=== PATIENT | male | born 1985 | race Caucasian/White ===

== ENCOUNTER → 2021-10-25 08:06 | Outpatient (CLI) | payer BC, SELFPAY ==
[2021-10-25 19:47] LABS: SARS-CoV-2 RNA PCR Positive
== END ==
PROVIDERS: PCP Family Medicine; Visit Provider Family Medicine
DX: U07.1 COVID-19 (principal)
CPT/HCPCS: C9803; U0003; U0005

== ENCOUNTER → 2023-06-04 14:12 | Outpatient (CLI) | payer OTHER, SELFPAY ==
--- NOTE | ~2023-06-04 | XR_ITS ---
EXAMINATION: [id number] Exam Date/Time: 06/04/2023 14:32 CDT HISTORY: LT LOWER ANTERIOR RIB PAIN AFTER WATER TUBING Comparison: None. RESULT: Lines, tubes, and devices: None. Lungs and pleura: Clear. Cardiomediastinal silhouette: Stable. Other: No acute osseous or upper abdominal finding. IMPRESSION: No acute cardiopulmonary process. No acute finding in the left ribs. Reviewed, dictated and finalized at location K.
== END ==
PROVIDERS: PCP Family Medicine; Visit Provider Nurse Practitioner Family
DX: R07.81 Pleurodynia (principal)
CPT/HCPCS: 71101

== ENCOUNTER 2023-07-28 10:03 | Outpatient (CLI) | payer OTHER, SELFPAY ==
--- NOTE | 2023-08-05 18:37 | WPDHOMESLEEP ---
Sleep Study - Home Unattended Date of Study: 07/28/23 Ordering Provider: Yariel Mckenna MD Interpreting Provider: Precious Zapien, DO Home Sleep Study Type: Watch SIRISHA Height: 1.88 m Weight: 107.501 kg Body Mass Index: 30.4 Neck Circumference (inches): 17.5 Thor: 15 Reason for Sleep Study Daytime hypersomnia Sleep History The patient is a 38-year-old male that had a sleep study ordered by his primary care for evaluation of sleep apnea. The patient frequently awakens from sleep short of breath. He constantly awakens at night with heartburn, belching or cough. He constantly snores loudly enough that others complain. He constantly has trouble sleeping when he has a cold. He occasionally wakes up gasping for air throughout the night. He frequently has breathing problems at night observed by himself or others. He frequently sweats excessively at night. He rarely has heart palpitations or irregular heartbeats during the night. He rarely falls asleep during the day. He rarely falls asleep while driving. He frequently experiences loss of muscle tone when extremely emotional. He frequently has trouble at school or work due to sleepiness. He frequently feels unable to move while waking up or falling asleep. He frequently experiences vivid dreamlike scenes upon awakening or falling asleep. He denies feeling afraid of going to sleep. He rarely has nightmares and occasionally remembers his dreams. He constantly has thoughts racing through his mind. He rarely feels sad or depressed. He constantly has anxiety. He constantly has muscular tension. He frequently notices parts of his body jerk. He constantly kicks during the night. He rarely has crawling and aching feelings in his legs and rarely has leg pain during the night. He constantly grinds his teeth during sleep and constantly awakens with morning jaw pain. He is rarely bothered by pain during the day and rarely awakened by pain during the night. He frequently wakes up feeling stiff in the morning. He frequently wakes up with sore or achy muscles. He frequently wakes up with pain in the neck, spine or other joints. He goes to bed at 9:00 p.m. on weekdays and at 10:00 p.m. on the weekends. It takes him 1-2 hours to fall asleep. He wakes up 1-2 times throughout the night for unknown reasons and is occasionally unable to get back to sleep. He wakes up between 7-8 a.m. on weekdays and 8:00 a.m. on the weekends. He typically gets 8 hours of sleep per night. He will stay in bed for 5-10 minutes after waking up in the morning. He currently lives with his and 2 children. He will consume caffeinated beverages within 2 hours of bedtime. He denies engaging in physical exercise before bedtime. He will watch television before falling asleep. He denies taking naps in the afternoon or evening. He consumes 3-4 caffeinated beverages per day. He consumes 2-3 alcoholic beverages per day. He uses CBD gummies. he denies tobacco use. [facility] Past Medical History Medical History Amniotic band syndrome affecting lower extremity Metal bone fixation hardware in place Thumb fracture Torn meniscus Family History Family History Mother Hypertension Family history of malignant neoplasm of cervix Grandparent Family history of cardiovascular disease Family history of malignant neoplasm of breast Social History Social History Smoking status: Never smoker Second hand tobacco smoke exposure: No Alcohol intake: current Drinks per week: 6 Substance use: never Substance use type: does not use Lack of Transportation: No Lack of Food: Never True Current Housing: I Have Housing Concerned About Future Housing: No Difficulty Paying Gas/Electric Bills: No Difficulty Paying for Meds: No Currentl
[2023-08-05 18:38] VITALS: BMI 30.4
--- NOTE | 2023-08-21 13:51 | SLEEP ---
new calls [phone]
== END 2023-07-29 12:49 | disposition home or self-care (01) ==
LOC: ANHCSM 10:04
PROVIDERS: PCP Family Medicine; Visit Provider Family Medicine
DX: G47.30 Sleep apnea, unspecified (principal); G47.33 Obstructive sleep apnea (adult) (pediatric)
CPT/HCPCS: 95800

== ENCOUNTER 2023-08-11 08:33 | Outpatient (CLI) | payer OTHER, SELFPAY ==
--- NOTE | 2023-08-26 19:59 | WPDSLEEPSTUD ---
Sleep Study Date of Study: 08/11/23 Ordering Provider: Yariel Mckenna MD Interpreting Physician: Precious Zapien DO Sleep Study Type: CPAP Titration Height: 1.88 m Weight: 108.862 kg Body Mass Index: 30.8 Neck Circumference (inches): 18 Ursa: 15 Reason for Sleep Study The patient had a WatchPAT home sleep study on 07/28/2023 that showed an overall AHI of 18.5, central apnea index of 6.5 and desaturation down to 88%. Sleep History The patient is a 38-year-old male that had a sleep study ordered by his primary care for evaluation of sleep apnea.? The patient frequently awakens from sleep short of breath.? He constantly awakens at night with heartburn, belching or cough.? He constantly snores loudly enough that others complain.? He constantly has trouble sleeping when he has a cold.? He occasionally wakes up gasping for air throughout the night.? He frequently has breathing problems at night observed by himself or others.? He frequently sweats excessively at night.? He rarely has heart palpitations or irregular heartbeats during the night.? He rarely falls asleep during the day.? He rarely falls asleep while driving.? He frequently experiences loss of muscle tone when extremely emotional.? He frequently has trouble at school or work due to sleepiness.? He frequently feels unable to move while waking up or falling asleep.? He frequently experiences vivid dreamlike scenes upon awakening or falling asleep.? He denies feeling afraid of going to sleep.? He rarely has nightmares and occasionally remembers his dreams.? He constantly has thoughts racing through his mind.? He rarely feels sad or depressed.??He constantly has anxiety.? He constantly has muscular tension.? He frequently notices parts of his body jerk.? He constantly kicks during the night.? He rarely has crawling and aching feelings in his legs and rarely has leg pain during the night.? He constantly grinds his teeth during sleep and constantly awakens with morning jaw pain.? He is rarely bothered by pain during the day and rarely awakened by pain during the night.? He frequently wakes up feeling stiff in the morning.? He frequently wakes up with sore or achy muscles.? He frequently wakes up with pain in the neck, spine or other joints.? He goes to bed at 9:00 p.m. on weekdays and at 10:00 p.m. on the weekends.? It takes him 1-2 hours to fall asleep.? He wakes up 1-2 times throughout the night for unknown reasons and is occasionally unable to get back to sleep.? He wakes up between 7-8 a.m. on weekdays and 8:00 a.m. on the weekends.? He typically gets 8 hours of sleep per night.? He will stay in bed for 5-10 minutes after waking up in the morning.? He currently lives with his and 2 children.? He will consume caffeinated beverages within 2 hours of bedtime.? He denies engaging in physical exercise before bedtime.? He will watch television before falling asleep.? He denies taking naps in the afternoon or evening.? He consumes 3-4 caffeinated beverages per day.? He consumes 2-3 alcoholic beverages per day.? He uses CBD gummies. He denies tobacco use. [facility] Past Medical History Medical History Amniotic band syndrome affecting lower extremity Metal bone fixation hardware in place Thumb fracture Torn meniscus Family History Family History Mother Hypertension Family history of malignant neoplasm of cervix Grandparent Family history of cardiovascular disease Family history of malignant neoplasm of breast Social History Social History Smoking status: Never smoker Second hand tobacco smoke exposure: No Alcohol intake: current Drinks per week: 6 Substance use: never Substance use type: does not use Lack of Transportation: No Lack of Food: Never True Current Housing: I Have Housing Concerned About
[2023-08-26 20:06] VITALS: BMI 30.8
== END 2023-08-12 07:51 | disposition home or self-care (01) ==
LOC: ANHCSM 08:34
PROVIDERS: PCP Family Medicine; Visit Provider Family Medicine
DX: G47.33 Obstructive sleep apnea (adult) (pediatric) (principal); G47.30 Sleep apnea, unspecified; G47.39 Other sleep apnea
CPT/HCPCS: 95811

== ENCOUNTER 2023-09-04 15:58 | Outpatient (CLI) | payer OTHER, SELFPAY ==
--- NOTE | 2023-09-04 16:13 | ECHO_ITS ---
Patient Info Name: Alistair Snyder Age: 38 years : 1985 Gender: Male Ht: 74 in Wt: 240 lbs BSA: 2.41 m2 HR: 75 bpm BP: 160 / 102 mmHg Heart Rhythm: Sinus Rhythm Technical Quality: Good Exam Date: 09/04/2023 4:26 PM Exam Location: Echo Lab Patient Status: Outpatient Admit Date: 09/04/2023 Staff Ordering Physician: Yariel Mckenna MD Edge Drummer: Syed Vu RDCS Attending Provider: Yariel Mckenna MD Referring Physician: Bala WHITAKER; Exam Type: CA echo doppler color flow Study Info Indications - RUPERTO Complete two-dimensional, color flow and Doppler transthoracic echocardiogram is performed. Summary 1. Complete two-dimensional, color flow and Doppler transthoracic echocardiogram is performed. 2. Left ventricular chamber dimension is normal. 3. Left ventricular systolic function is normal, estimated at 60-65%. 4. The left ventricular diastolic function is normal. 5. E/e' 5 is not elevated. 6. There is trace tricuspid valve regurgitation. 7. No pulmonary hypertension, estimated pulmonary arterial systolic pressure is 14 mmHg. Left Ventricle E/e' 5 is not elevated. Left ventricular chamber dimension is normal. Left ventricular systolic function is normal, estimated at 60-65%. The left ventricular diastolic function is normal. Right Ventricle Right ventricular systolic function is normal and with normal TAPSE 2.8 cm. Right ventricular chamber dimension is normal. Left Atria Left atrial chamber dimension is normal. Right Atria Right atrial chamber dimension is normal. Aortic Valve The aortic valve is trileaflet. There is no aortic valve stenosis. There is no aortic valve regurgitation. Pulmonic Valve There is no pulmonic regurgitation. Mitral Valve There is no mitral valve stenosis. There is no mitral valve regurgitation. Tricuspid Valve There is trace tricuspid valve regurgitation. No pulmonary hypertension, estimated pulmonary arterial systolic pressure is 14 mmHg. Pericardium/Pleural There is no pericardial effusion. Inferior Vena Cava Normal inferior vena cava with >50% collapse upon inspiration consistent with normal right atrial pressure, 5 mmHg. Aorta The aortic root size at the sinus of Valsalva is normal. Left Ventricular Outflow Tract Name Value Normal LVOT 2D LVOT Diameter 2.3 cm LVOT Doppler LVOT Peak Gradient 4 mmHg LVOT Mean Gradient 2 mmHg LVOT VTI 21 cm LVOT VTI/AV VTI Ratio 1.1 LVOT Stroke Volume 84 ml LVOT CO 5.4 l/min LVOT CI 2.3 l/min/m2 Pulmonic Valve Name Value Normal RVOT Doppler RVOT Peak Gradient 2 mmHg PV Doppler PV Peak Gradient 4 mmHg
== END 2023-09-04 15:59 | disposition home or self-care (01) ==
PROVIDERS: PCP Family Medicine; Visit Provider Family Medicine
DX: G47.33 Obstructive sleep apnea (adult) (pediatric) (principal); G47.30 Sleep apnea, unspecified
CPT/HCPCS: 93306

== ENCOUNTER 2024-04-03 09:48 | Emergency (ER) | payer OTHER, SELFPAY ==
--- NOTE | 2024-04-03 09:55 | ED.GENADULT ---
HPI - General Adult General Chief complaint: Ear Stated complaint: EARACHE Time Seen by Provider: 04/03/24 09:56 Source: patient Mode of arrival: ambulatory Limitations: no limitations History of Present Illness HPI narrative: 39-year-old male patient presents to the [facility] with complaints of left ear pain that started about 2 days ago. Patient states he thinks he might have swimmer's ear. Patient states he does have a pool and did do some recent swimming. Denies fevers, body aches or chills. Denies any headaches, throat pain or any other symptoms at this time. Related Data Allergies Allergy/AdvReac Type Severity Reaction Status Date / Time latex Allergy Mild Rash Verified 04/03/24 09:57 Review of Systems Review of Systems: CONSTITUTIONAL: Denies fever, chills, or sweats. EYES: Denies visual changes, redness, or discharge. ENT: Denies rhinorrhea, congestion, sore throat, Positive left otalgia. CARDIOVASCULAR: Denies chest pain, palpitations, or edema. RESPIRATORY: Denies cough or dyspnea. GASTROINTESTINAL: Denies abdominal pain, nausea, vomiting, or diarrhea. GENITOURINARY: Denies dysuria or hematuria. SKIN: Denies rash or itching. MUSCULOSKELETAL: Denies back pain, joint pain, or myalgia. NEUROLOGIC: Denies headache, numbness, or weakness. PSYCHIATRIC: Denies anxiety or depression. [facility] Past Medical History Medical History Amniotic band syndrome affecting lower extremity Metal bone fixation hardware in place Thumb fracture Torn meniscus Family History Family History Mother Hypertension Family history of malignant neoplasm of cervix Grandparent Family history of cardiovascular disease Family history of malignant neoplasm of breast Social History Social History Smoking status: Never smoker Second hand tobacco smoke exposure: No Alcohol intake: current Drinks per week: 6 Substance use: never Substance use type: does not use Lack of Transportation: No Lack of Food: Never True Current Housing: I Have Housing Concerned About Future Housing: No Difficulty Paying Gas/Electric Bills: No Difficulty Paying for Meds: No Currently Unemployed: No Education: Master's Degree or Higher Difficulty w/ Childcare or Family Care: No Living arrangements: with family Occupation/Education: occupation Gender identity (if verbalized by the patient): Male Comments At the time of my signature I agree with nursing past medical history, surgical, social, and family history. There is no relevant family history pertinent to the presenting complaint. Exam Narrative: GENERAL: Well-appearing, well-nourished, and in no acute distress. HEAD: Normocephalic, atraumatic. EYES: PERRLA and EOMI. ENT: Nares clear, no rhinorrhea or epistaxis. Mucous membranes moist. left ear canal appears to have erythema and slight discharge. There is pain with manipulation of the left auricle. TM is intact. NECK: Supple. No lymphadenopathy CHEST: Clear to auscultation. No respiratory distress. HEART: Regular rate and rhythm. No murmur heard. Normal peripheral pulses. ABDOMEN: Soft, nontender, nondistended, normal active bowel sounds. EXTREMITIES: Normal range of motion. No edema. SKIN: Warm, dry, no rash. NEURO: No focal deficits. Alert and oriented x3. Course Course Level of Care: Express Care Visit Vital Signs Vital signs: Vital Signs Temperature 37.1 C 04/03/24 10:03 Pulse Rate 82 04/03/24 10:03 Respiratory Rate 16 04/03/24 10:03 Blood Pressure 154/95 H 04/03/24 10:03 Pulse Oximetry 100 04/03/24 10:03 Temperature 37.1 C 04/03/24 10:03 Pulse Rate 82 04/03/24 10:03 Respiratory Rate 16 04/03/24 10:03 Blood Pressure 154/95 H 04/03/24 10:03 Pulse Oximetry 100 04/03/24 10:03 Vital signs rev
[2024-04-03 10:03] VITALS: BP 154/95; PULSE 82; RESP 16; TEMP 37.1; O2SAT 100
== END 2024-04-03 10:49 | disposition home or self-care (01) ==
PROVIDERS: Emergency Provider Nurse Practitioner Family; PCP Family Medicine
DX: H60.92 Unspecified otitis externa, left ear (principal)
CPT/HCPCS: 99213; G0463

== ENCOUNTER 2025-07-15 08:58 | Outpatient (CLI) | payer OTHER, SELFPAY ==
--- OUTSIDE RECORDS SUMMARY | 2025-07-15 09:15 | XMS_ITS | Clinical Summary ---
Author Organization [facility] Address [address] [place] [address] Care Team Providers Care Office Machine Servicer Name Role Phone Unavailable Primary Care Provider Unavailabl e Source Comments [facility],non-owned Affiliates and Associated Physician Practices is amultiple site organization consisting of ambulatory clinics and hospital sitesin [place], [place], [place] and [place]. This disclosure is being madepursuant to the Care Everywhere program and may not contain all information available regarding this patient. 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 Gender Identity Not on file Sexual Orientation Not on file Plan of Treatment Health Maintenance Due Date Last Done Comments LIPID TESTING 1985 HIV SCREENING 02/23/2000 HEPATITIS C SCREENING 02/18/2003 DTAP/TDAP/TD VACCINES (1 - Tdap) 02/23/2004 HEPATITIS B VACCINE (1 of 3 - 19+ 3-dose series) 02/23/2004 HPV VACCINE (1 - 3-dose SCDM series) 02/23/2012 DEPRESSION SCREENING 11/03/2024 COVID-19 VACCINE (1 - 2023-2 5 season) 2025 INFLUENZA VACCINE (#1) 2025 ZOSTER VACCINE (1 of 2) 2035 HIB VACCINE Aged Out No longer eligi ble based on patient's age to complete this topic MENINGOCOCCAL (Group B) VACC INE SHARED DECISION-MAKING Aged Out No longer eligibl e based on patient's age to complete this topic MENINGOCOCCAL GROUPS A/C/Y/W VACCINE Aged Out No longer eligible b ased on patient's age to complete this topic PNEUMOCOCCAL VACCINE Aged Out No long er eligible based on patient's age to complete this topic Insurance [facility] Member Subscriber Plan / Payer ( fective 2022-Present) Name:Alistair Mccarthy Relation to Subscriber:Self Name:ALISTAIR MCCARTHY Payer ID:[id number] (NAIC) Type:[employer] Address: [place] [id number] [facility] Member Subscriber Plan / Payer ( fective 2022-Present) Name:Alistair Mccarthy Relation to Subscriber:Self Name:ALISTAIR MCCARTHY Payer ID:[id number] (NAIC) Type:[employer] Address: [place] [phone]
--- OUTSIDE RECORDS SUMMARY | 2025-07-15 09:15 | XMS_ITS | Encounter Summary ---
Author Organization [facility] Address [address] [place] [address] Care Team Providers Care Television Program Director Name Role Phone Unavailable Primary Care Provider Unavailabl e Encounter Details Date Type Department Care Team (Late st Contact Info) Description 09/20/2023 Lab Requisition [facility] - DermPath Lab [address] [place] [id number] Chas Sumner MD [address] [place] [id number] Social History Tobacco Use Types Packs/Day Years Used Date Smoking Tobacco: Never Assessed Sex and Gender Information Value Date Recorded Sex Assigned at Not on file 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 Gender Identity Not on file Sexual Orientation Not on file documented as of this encounter Plan of Treatment Not on file documented as of this encounter Procedures Procedure Name Priority Date/Time Associated Diagnosis Comments DERMATOPATHOLOGY Routine 09/17/2023 12:0 0 AM SHRIMP CLEANER documented in this encounter Results * DERMATOPATHOLOGY (09/17/2023 12:00 AM SHRIMP CLEANER) Case Report Dermatopathology Report Case: [id number] Authorizing Provider: Chas Sumner MD Collected: 09/17/2023 12:00 AM Ordering Location: [facility] DermPath Lab Received: 09/20/2023 08:08 AM Pathologist: Melida Iraheta MD Specimens: A) - Skin, right of midline mid back B) - Skin, left dorsal radial hand 12:26 PM SHRIMP CLEANER DERMATOPATHOLOGY LABORATORY Final Diagnosis Specimen A. 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 SKIN, left dorsal radial hand: EPIDERMOID CYST WITH SCAR (L72.0) 3 12:26 PM [facility] DERMATOPATHOLOGY LABORATORY at [address] SHRIMP CLEANER Clinical History A: R/O Dys Nevus B: R/O BCC 12:26 PM [facility] DERMATOPATHOLOGY LABORATORY Gross Description Specimen A: Received is one formalin filled container labeled with the patient's name and designated right of midline mid back. The specimen consists of a shave biopsy measuring 6x5x2 mm. Jar 0. Specimen B: Received is one formalin filled container labeled with the patient's name and designated left dorsal radial hand. The specimen consists of a shave biopsy measuring 8x7x2 mm. Jar 0. 12:26 PM [facility] DERMATOPATHOLOGY LABORATORY Microscopic Description Specimen A. SKIN, right of midline mid back: There are nests of cytologically bland melanocytes within the dermis that mature with depth. Specimen B. SKIN, left dorsal radial hand: Within the dermis, there is a space lined by epithelium that resembles normal epidermis and the infundibular portion of the hair follicle. There are fibroblasts and collagen bundles oriented parallel to one another. 12:26 PM [facility] DERMATOPATHOLOGY LABORATORY Disclaimer An external and internal positive and negative controls are appropriate for the histochemical, immunohistochemical and immunofluorescence stain(s) in this case (if any), except where stated explicitly. The performance characteristics of the stain(s) cited in this report were developed and its performance characteristic determined by the Dermatopathology Laboratory at [facility], directed by Dr. Salinas Corrigan. These tests need not be, and therefore are not, approved by the [place] Food and Drug Administration. The tests are used for clinical purposes. Billing Codes Specimen Charges Stain Charges 35659 [id number] 1 3 12:26 PM SHRIMP CLEANER DERMATOPATHOLOGY LABORATORY Embedded Images 3 12:26 PM [facility] DERMATOPATHOLOGY LABORATORY Pathology/Cytology TISSUE SPECIMEN FROM SKIN / Unknown 09/17/2023 09/20/2023 8:08 AM SHRIMP CLEANER Miscellaneous samples (specimen) TISSUE SPECIMEN FROM SKIN / Unknown 09/17/2023 09/20/2023 8:08 AM SHRIMP CLEANER Chas Sumner MD LAB - PATHOLOGY/CYTOLOGY ORD ERABLES Final Result DERMATOPATHOLOGY LABORATORY [facility] - Department of Dermatology [facility] [address] [place] [address], [address] [phone] documented in this encounter Visit Diagnoses Not on filedocumented in this encounter
--- OUTSIDE RECORDS SUMMARY | 2025-07-15 09:15 | XMS_ITS | Encounter Summary ---
Author Organization [facility] Address [address] [facility] [place] [address] Care Team Providers Care Miter Operator Name Role Phone Unavailable Primary Care Provider Unavailabl e Encounter Details Date Type Department Care Team (Late st Contact Info) Description 09/04/2022 Lab Requisition [facility] [address] [place] [id number] Chas Sumner MD [address] [place] [id number] Social History Tobacco Use Types Packs/Day Years Used Date Smoking Tobacco: Never Assessed Sex and Gender Information Value Date Recorded Sex Assigned at Not on file 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 Gender Identity Not on file Sexual Orientation Not on file documented as of this encounter Plan of Treatment Not on file documented as of this encounter Procedures Procedure Name Priority Date/Time Associated Diagnosis Comments DERMATOPATHOLOGY Routine 09/03/2022 12:0 0 AM CDT documented in this encounter Results * DERMATOPATHOLOGY (09/03/2022 12:00 AM CDT) Case Report Dermatopathology Report Case: [id number] Authorizing Provider: Chas Sumner MD Collected: 09/03/2022 12:00 AM Ordering Location: [facility] Received: 09/04/2022 01:15 PM Pathologist: Melida Iraheta MD Specimens: A) - Skin, right lower back B) - Skin, left lower back C) - Skin, right lower lateral back at flank D) - Skin, right cheek lateral to ala E) - Skin, behind left earlobe in sulcus 2 3:40 PM [facility] Final Diagnosis Specimen A. 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 SKIN, left lower back: MALIGNANT MELANOMA, SUPERFICIAL SPREADING TYPE BRESLOW THICKNESS 0.4MM JOHN LEVEL II PRESENT AT MARGIN (C43.59) (see microscopic description and synoptic report) Specimen C. SKIN, right lower lateral back at flank: COMPOUND NEVUS WITH CONGENITAL FEATURES (D22.5) Specimen D. SKIN, right cheek lateral to ala: ANGIOFIBROMA (FIBROUS PAPULE) (D21.0) SEBACEOUS HYPERPLASIA (L73.8) CHRONIC PERIFOLLICULITIS (L73.8) (see microscopic description) Specimen E. SKIN, behind left earlobe in sulcus: COMPOUND MELANOCYTIC NEVUS (D22.22) 2 3:40 PM [facility] at 1540 PROCESS MECHANIC Clinical History A-E: R/O BCC 2 3:40 PM [facility] Gross Description Specimen A: Received is one formalin filled container labeled with the patient's name and designated right lower back. The specimen consists of a shave biopsy measuring [id number]. Jar 0. Specimen B: Received is one formalin filled container labeled with the patient's name and designated left lower back. The specimen consists of a shave biopsy measuring [id number]. Jar 0. Specimen C: Received is one formalin filled container labeled with the patient's name and designated right lower lateral back at flank. The specimen consists of a shave biopsy measuring [id number]. Jar 0. Specimen D: Received is one formalin filled container labeled with the patient's name and designated right cheek lateral to ala. The specimen consists of a punch biopsy measuring 4i0c4pt. Jar 0. Specimen E: Received is one formalin filled container labeled with the patient's name and designated behind left earlobe in sulcus. The specimen consists of a shave biopsy measuring 5a7z0bl. Jar 0. 2 3:40 PM [facility] Microscopic Description Specimen A. SKIN, right lower back: This is a compound nevus. There is a lentiginous proliferation of melanocytes along the dermal-epidermal junction, highlighted by MART-1/Melan-A immunohistochemical staining. There is underlying fibroplasia of the papillary dermis. The intradermal component is bland in appearance and matures with depth. Original and deeper sections were reviewed. (Compound John's Nevus) Specimen B. SKIN, left lower back: There is a proliferation melanocytes distributed in an irregular pattern singly and in nests at all levels of the epidermis. In the dermis there are irregular nests and single scattered melanocytes. Lesional cells are highlighted by MART-1/MelanA immunostain. Additional deeper sections were obtained and reviewed. This lesion is present at the margin of the specimen. Specimen C. SKIN, right lower lateral back at flank: There are nests of melanocytes at the dermal-epidermal junction and within the dermis. Some melanocytes are splayed between collagen bundles and are localized around adnexal structures. Specimen D. SKIN, right cheek lateral to ala: This dome-shaped lesion contains dilated blood vessels, coarse collagen bundles, and stellate fibroblasts. There are prominent sebaceous gland lobules surrounding a dilated hair follicle. Sections show a perifollicular lymphohistiocytic infiltrate. SOX-10 staining highlights regular periodicity of melanocytes along the dermoepidermal junction.Additional deeper sections were obtained and reviewed. Specimen E. SKIN, behind left earlobe in sulcus: There are nests of melanocytes at the dermal-epidermal junction and within the dermis. 2 3:40 PM [facility] Disclaimer An external and internal positive and negative controls are appropriate for the histochemical, immunohistochemical and immunofluorescence stain(s) in this case (if any), except where stated explicitly. The performance characteristics of the stain(s) cited in this report were developed and its performance characteristic determined by the Dermatopathology Laboratory at [facility], directed by Dr. Salinas Corrigan. These tests need not be, and therefore are not, approved by the [place] Food and Drug Administration. The tests are used for clinical purposes. Billing Codes Specimen Charges Stain Charges 81843 [id number] 37689 1 1 1 1 1 [id number] [id number] 1 1 1 2 3:40 PM [facility] Embedded Images 2 3:40 PM [facility] Synoptic Report MELANOMA OF THE SKIN: Biopsy MELANOMA OF THE SKIN: BIOPSY - B 8th Edition - Protocol posted: 01/23/2022 SPECIMEN Procedure: Biopsy, shave Specimen Laterality: Left TUMOR Tumor Site: Skin of trunk: left lower back Histologic Type: Superficial spreading melanoma (low-cumulative sun damage (CSD) melanoma) Maximum Tumor (Breslow) Thickness (Millimeters): At least: 0.4 mm : tumor is present at the surgical margin; therefore the final depth may exceed the current one. Ulceration: Not identified Anatomic (John) Level: At least level: II : tumor is present at the surgical margin; therefore the final depth may exceed the current one. Mitotic Rate: None identified Microsatellite(s): Cannot be determined Lymphovascular Invasion: Not identified Neurotropism: Not identified Tumor-Infiltrating Lymphocytes: Present, nonbrisk Tumor Regression: Present MARGINS: Margin Status for Invasive Melanoma: All margins negative for invasive melanoma Margin Status for Melanoma in situ: Melanoma in situ present at margin Margin(s) Involved by Melanoma in Situ: Peripheral PATHOLOGIC STAGE CLASSIFICATION (pTNM, AJCC 8th Edition): pT Category: pT1a Comment(s): This specimen was also reviewed by Dr. Dian Lomeli, who agrees. 3:40 PM [facility]ERMATOPATH[facility]Y [facility]ORY Pathology/Cytology TISSUE SPECIMEN FROM SKIN / Unknown 09/03/2022 09/04/2022 1:15 PM CDT Miscellaneous samples (specimen) TISSUE SPECIMEN FROM SKIN / Unknown 09/03/2022 09/04/2022 1:15 PM CDT Miscellaneous samples (specimen) TISSUE SPECIMEN FROM SKIN / Unknown 09/03/2022 09/04/2022 1:15 PM CDT Miscellaneous samples (specimen) TISSUE SPECIMEN FROM SKIN / Unknown 09/03/2022 09/04/2022 1:15 PM CDT Miscellaneous samples (specimen) TISSUE SPECIMEN FROM SKIN / Unknown 09/03/2022 09/04/2022 1:15 PM CDT us Chas Sumner MD LAB - PATHOLOGY/CYTOLOGY ORD ERABLES Final Result DERMATOPATHOLOGY LABORATORY [facility] - Department of Dermatology [address] [place] [address], [facility] [phone] documented in this encounter Visit Diagnoses Not on filedocumented in this encounter
--- OUTSIDE RECORDS SUMMARY | 2025-07-15 09:15 | XMS_ITS | Clinical Summary ---
Author Organization [facility] Address [address] [place] [id number] Care Team Providers Care Edge Dyer Name Role Phone Yariel Mckenna MD Primary Care Provider [phone] Allergies Active Allergy Reactions Criticality Noted Date Comments Latex Rash Medium Medications busPIRone (BUSPAR) 10 mg tablet Take 1 tablet (10 mg total) by mouth 2 (two) times a day 07/21/2023 Active zolpidem (AMBIEN) 10 mg tablet 08/06/2023 Active propranoloL (INDERAL) 20 mg tablet 09/29/2023 Active meloxicam (MOBIC) 15 mg tablet Take 1 tablet (15 mg total) by mouth daily 30 tablet 10/06/2023 Active Active Problems Problem Noted Date Diagnosed Date Contusion of left knee 10/06/2023 Chondromalacia of left patella 10/06/2023 Sprain of medial collateral ligament of left kne e 04/09/2019 Acute pain of left knee 04/08/2019 Injury of left knee 04/08/2019 Insect bite 09/17/2016 Disorder of rotator cuff 05/27/2016 Subdeltoid bursitis 05/27/2016 Fracture of tibial plateau 01/24/2016 Tear of medial meniscus of knee 02/21/2014 Effusion of knee 02/18/2014 Surgical History Surgery Date Site/Laterality Comments KNEE ARTHROSCOPY HAND SURGERY FOOT SURGERY FRACTURE SURGERY HERNIA REPAIR LASIK Medical History Medical History Date Comments Anxiety Migraines GERD (gastroesophageal reflux disease) Cancer (HCC) Brain concussion Sleep apnea Family History Medical History Relation Name Comments Arthritis Mother Rosalinda Cancer Mother Rosalinda Family history of malignant neoplasm - (Added by TW Conv) Hypertension Mother Rosalinda Family history of hypertension - (Added by TW Conv) Relation Name Status Comments Mother Rosalinda Social History Tobacco Use Types Packs/Day Years Used Date Smoking Tobacco: Never Smokeless Tobacco: Never Tobacco Cessation:Counseling Given: Not Answered Alcohol Use Standard Drinks/Week Comments Yes 0 (1 standard drink = 0.6 oz pur e alcohol) Personal Safety Answer Date Recorded Getting School Help Needed Not on file 12/11 Sex and Gender Information Value Date Recorded Sex Assigned at Not on file 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 Gender Identity Not on file Sexual Orientation Not on file Obstetrics History Last Filed Vital Signs Vital Sign Reading Time Taken Comments Blood Pressure 141/84 09/19/2022 12:20 PM APPLE PEELER OPERATOR Pulse 72 09/19/2022 12:20 PM APPLE PEELER OPERATOR Temperature - - Respiratory Rate - - Oxygen Saturation 99% 09/19/2022 12:20 PM APPLE PEELER OPERATOR Inhaled Oxygen Concentration - - Weight 102.1 kg (225 lb) 04/08/2019 12:29 PM CDT Height 188 cm (6' 2) 04/08/2019 12:29 PM CDT Body Mass Index 28.89 04/08/2019 12:29 PM CDT Plan of Treatment Health Maintenance Due Date Last Done Comments Depression Screening 1985 Hepatitis C Screening 1985 Varicella Vaccines (1 of 2 - 13+ 2-dose series) 1998 Hepatitis B Screening 2003 Regular Well Visit/Exam 18-64 2003 HPV Vaccines (1 - 3-dose SCDM series) 02/23/2012 Covid-19 Vaccine ( season) 2025 10/21/2021, 02/11/2021, 01/16/2021 Influenza Vaccine (#1) 2025 , 08/23/2020, 09/29/2019, Additional history exists DTaP/Tdap/Td Vaccine (2 - Td or Tdap) 02/13/2026 02/14/2016 Pneumococcal vaccine <65 Aged Out No longer eligible based on patient's age to complete [place] [address] [place] [address] [facility] CHO[facility] PL[facility] Care Teams Edge Dyer Relationship Specialty Start Date End Date Yariel Mckenna MD [address] [place] [address] [facility] [place] [address] PCP - General Family Medicine 09/15/23
[2025-07-15 18:12] LABS: Hematocrit 40.9 % (42.0-52.0); Hemoglobin 14.0 g/dL (14.0-18.0); Immature Granulocyte Percent A 0.3 % (0-0.5); Lymphocytes Absolute Auto 1.43 K/mm3 (0.9-3.2); Mean Corpuscular HGB Conc 34.2 g/dl (32-36); Mean Corpuscular Hemoglobin 31.4 pg (26-34); Mean Corpuscular Volume 91.7 fl (80-100); Nucleated Red Blood Cells Absolute Auto 0.000 K/mm3 (0.0-0.012); Nucleated Red Blood Cells Perc 0.0 % (0.0-0.2); Platelet Count Result 201 k/mm3 (150-375); Red Blood Count 4.46 M/mm3 (4.6-6.20); White Blood Count 3.9 K/mm3 (4.5-10.0)
[2025-07-15 19:09] LABS: Alanine Aminotransferase 30 U/L (6-50); Albumin Level 4.5 g/dL (3.5-5.1); Alkaline Phosphatase 95 U/L (38-126); Anion Gap 10 mmol/L (4-12); Aspartate Amino Transferase 30 U/L (17-59); Bilirubin,Total 0.3 mg/dL (0.2-1.3); Blood Urea Nitrogen 18 mg/dL (9-20); Calcium 9.4 mg/dL (8.4-10.2); Carbon Dioxide 23 mmol/L (22-30); Chloride 107 mmol/L (98-107); Cholesterol 206 mg/dL (0-200); Estimated Glomerular Filt Rate > 60; Glucose 98 mg/dL (65-110); HDL Direct 44 mg/dL; Potassium 4.5 mmol/L (3.4-5.0); Sodium 140 mmol/L (137-145); Total Protein 7.6 g/dL (6.3-8.2); Triglycerides 233 mg/dL (<150)
[2025-07-15 19:22] LABS: Thyroid Stimulating Hormone Reflex 1.320 uIU/mL (0.465-4.68)
[2025-07-16 08:09] LABS: C-Reactive Protein, Cardiac 1.10 mg/L (0.00-3.00)
== END 2025-07-15 08:59 | disposition home or self-care (01) ==
LOC: ANHGOSHLAB 08:58
PROVIDERS: PCP Family Medicine; Visit Provider Family Medicine
DX: E78.5 Hyperlipidemia, unspecified (principal); R03.0 Elevated blood-pressure reading, without diagnosis of hypertension; Z82.49 Family history of ischemic heart disease and other diseases of the circulatory system
CPT/HCPCS: 36415; 80053; 80061; 82172; 84443; 85025; 86141